=== PATIENT | male | born 1960 | race Caucasian/White ===

== ENCOUNTER → 2017-03-03 | Outpatient (CLI) | payer BC ==
--- NOTE | 2017-03-03 08:32 | US ---
EXAMINATION TYPE: US abdomen complete DATE OF EXAM: 03/03/2017 COMPARISON: US CLINICAL HISTORY: R10.30 Abdominal Pain. RUQ pain, gallbladder surgically absent. EXAM MEASUREMENTS: Liver Length: 18.0 cm Gallbladder Wall: Surgically absent cm CBD: 0.4 cm Spleen: 13.8 cm Right Kidney: 12.8 x 4.9 x 5.9 cm Left Kidney: 13.5 x 6.3 x 6.0 cm Pancreas: not well visualized due to midline bowel gas Liver: Hepatic echotexture is heterogenous and hyperechoic with poor visualization of the portal tria ds. This finding limits evaluation for underlying hepatic masses. Gallbladder: Surgically absent CBD: wnl Spleen: Upper limits of normal size. Right Kidney: No hydronephrosis or masses seen Left Kidney: No hydronephrosis or masses seen Upper IVC: wnl Abd Aorta: wnl The intrahepatic portion of the IVC and proximal abdominal aorta are within normal limits. Common b ile duct is unremarkable. The visualized portions of the pancreas are homogenous. The spleen is unr emarkable. Kidneys are symmetric and free of hydronephrosis. No renal lesions are seen. IMPRESSION: 1. Hyperechoic hepatic echotexture, most commonly related to hepatic steatosis appearing mild in degr ee. 2. Spleen is upper limits of normal size approaching criteria for splenomegaly.
== END | disposition home or self-care (01) ==
LOC: RADUSWWP 07:38
PROVIDERS: ATTEND Family Medicine
DX: K76.0 Fatty (change of) liver, not elsewhere classified (principal); R16.2 Hepatomegaly with splenomegaly, not elsewhere classified; R10.30 Lower abdominal pain, unspecified
CPT/HCPCS: 76700

== ENCOUNTER 2019-02-03 08:46 | Day surgery (SDC) | payer BC ==
[2019-02-01 15:48] VITALS: BMI 28.8
[~2019-02-03 08:46] MED LIST: DEXAMETHASONE SOD PHOSPHATE 10 MG/ML 1 ML VIAL IV ONE; DEXAMETHASONE SOD PHOSPHATE 4 MG/ML 1 ML VIAL IV ONE; FAMOTIDINE 20 MG/2 ML VIAL IV ONE; LACTATED RINGERS 1,000 ML IV SCH; LIDOCAINE 1% 20 ML VIAL (10MG/ML) FOR IV START INTRADERMA PRN; MIDAZOLAM 2 MG/2 ML VIAL IV PRN; ONDANSETRON 4 MG/2 ML VIAL IVP ONE; SCOPOLAMINE 1.5MG/72HR PATCH TRANSDERM ONE
[2019-02-03] MEDS ORDERED: LACTATED RINGERS 1,000 ML IV ONE (09:48)
[2019-02-03] MEDS: OXYMETAZOLINE 0.05% NASL SPRAY 1 SPRAY BOTTLE NASAL ONE ×5 (09:55→10:15)
[2019-02-03] MEDS ORDERED: ROCURONIUM BROMIDE 10 MG/ML 10 ML VIAL IV ONE (11:55)
[2019-02-03] MEDS ORDERED: LIDOCAINE 1% INJ 10MG/ML (20 ML MDV) ONE (11:55)
[2019-02-03] MEDS ORDERED: MIDAZOLAM 2 MG/2 ML VIAL ONE (11:55)
[2019-02-03] MEDS ORDERED: PROPOFOL 10 MG/ML 20 ML VIAL IV ONE (11:55)
[2019-02-03] MEDS ORDERED: GLYCOPYRROLATE 0.2 MG/ML 2 ML VIAL ONE (11:55)
[2019-02-03] MEDS ORDERED: fentaNYL (PF) 50 MCG/ML 2 ML AMP ONE (11:55)
[2019-02-03] MEDS ORDERED: NEOSTIGMINE 1 MG/ML 10 ML VIAL ONE (11:55)
[2019-02-03] MEDS ORDERED: LIDOCAINE 1%-EPI 1:100,000 20 ML VIAL SUBMUCOSAL ONE ×3 (12:13→12:14)
[2019-02-03] MEDS ORDERED: BACITRACIN 500 UNIT/GM OINT 28.4 GM TUBE TOPICAL ONE (12:30)
--- NOTE | 2019-02-03 12:44 | P.OP ---
Date of Procedure: 02/03/19 Preoperative Diagnosis: Deviated nasal septum Inferior turbinate hypertrophy Postoperative Diagnosis: Same Procedure(s) Performed: Septoplasty Outfractured and submucous resection of the inferior turbinates Anesthesia: YAAKOVA Surgeon: Misael Kay Estimated Blood Loss (ml): 5 Pathology: other (Nasal septal bone and cartilage) Condition: stable Disposition: PACU Indications for Procedure: This is a 58-year-old white male whose had difficulties with chronic nasal airway obstruction bilateral not improving with medical management Operative Findings: Nasal septum deviated to the right anterior left posteriorly with a large septal spur posteriorly on the left with inferior turbinate hypertrophy bilaterally Description of Procedure: DESCRIPTION OF PROCEDURE: The patient was brought to the operative suite, placed in the supine position. The patient underwent induction of general anesthesia with oral endotracheal intubation without difficulty. The patient was prepped and draped in the usual aseptic fashion. 1% lidocaine with 1:100,000 epinephrine was infused submucosally on both sides of the nasal septum. While this was taking vasoconstrictive effect, the inferior turbinates were infractured with a Maury elevator. Partial submucous resection of the inferior turbinates was performed with Coblation device ablating a portion of the submucosal soft tissue. The inferior turbinates were then outfractured with a Maury elevator. A left hemitransfixion incision was then made through the mucoperichondrial. Mucoperiosteal flap on the left elevated. Bony cartilaginous junction was disarticulated and mucoperiosteal flap on the right was elevated. Bony nasoseptal deformity were removed with Brina forceps and an inferior cartilaginous strip was removed, leaving a full 1.5 cm caudal strut. Checking intranasally, this corrected the nasal septal deformities and the hemitransfixion incision was closed with running 4-0 chromic suture. The bilateral Lazar airway splints coated in bacitracin ointment were placed in the nasal cavities and sutured transseptally with 4-0 nylon suture. The patient was then suctioned in an orogastric fashion. The patient was allowed to emerge from general anesthesia, having tolerated the procedure well and was extubated in the operating suite, transferred to postoperative recovery area in satisfactory condition.
[2019-02-03 12:54] VITALS: RESP 16; TEMP 97.7
[2019-02-03] MEDS: HYDROmorphone 0.5 MG/0.5 ML SYRINGE IVP PRN ×2 (13:15→13:22)
[2019-02-03] MEDS ORDERED: HYDROcodone/APAP 5-325MG 1 EACH TAB PO ONE (14:12)
[2019-02-03] MEDS ORDERED: hydrALAZINE HCL 20 MG/ML 1 ML VIAL IV ONE ×2 (14:59→16:01)
[2019-02-03 16:20] VITALS: BP 137/83; PULSE 86
== END 2019-02-03 16:31 | disposition home or self-care (01) ==
LOC: OR 08:46
PROVIDERS: ATTEND Otolaryngology
DX: J34.2 Deviated nasal septum (principal); J34.3 Hypertrophy of nasal turbinates; Z90.49 Acquired absence of other specified parts of digestive tract; Z90.89 Acquired absence of other organs; Z82.49 Family history of ischemic heart disease and other diseases of the circulatory system
CPT/HCPCS: 88300; 30520; 30802; J2250; J0360; J1100; J2710; J2405; J2001; J3010; J2704; J1170

== ENCOUNTER → 2020-12-28 | Outpatient (CLI) | payer BC ==
[2020-12-28 14:35] LABS: ALT 30 U/L (4-49); AST 27 U/L (17-59); African American GFR (CKD) >90 (>60 ml/min/1.73 sqM); Anion Gap 9 mmol/L; Blood Urea Nitrogen 18 mg/dL (9-20); C Reactive Protein 0.7 mg/dL (<1.0); Calcium 9.3 mg/dL (8.4-10.2); Carbon Dioxide 25 mmol/L (22-30); Chloride 104 mmol/L (98-107); Creatine Kinase 241 U/L (55-170); Glucose 137 mg/dL (74-99); Non-African American GFR(CKD) >90 (>60 ml/min/1.73 sqM); Sodium 138 mmol/L (137-145); Uric Acid 6.9 mg/dL (3.5-8.5)
[2020-12-28 14:47] LABS: T4, Free (Free Thyroxine) 0.81 ng/dL (0.78-2.19)
[2020-12-28 18:11] LABS: Basophils # (A) 0.04 X 10*3/uL (0.00-0.10); Basophils % (A) 0.6 %; Eosinophils # (A) 0.09 X 10*3/uL (0.04-0.35); Eosinophils % (A) 1.3 %; HCT 43.6 % (39.6-50.0); HGB 14.6 g/dL (13.0-17.0); Lymphocytes # (A) 1.61 X 10*3/uL (0.90-5.00); Lymphocytes % (A) 22.9 %; MCH 29.4 pg (27.0-32.0); MCHC 33.5 g/dL (32.0-37.0); MCV 87.7 fL (80.0-97.0); Mean Platelet Volume 9.2 fL (9.5-12.2); Monocytes # (A) 0.33 X 10*3/uL (0.20-1.00); Monocytes % (A) 4.7 %; Neutrophils % (A) 69.6 %; Platelet Count 319 X 10*3/uL (140-440); RBC 4.97 X 10*6/uL (4.40-5.60); RDW 11.9 % (11.5-14.5); WBC 7.03 X 10*3/uL (4.50-10.00)
[2020-12-28 21:58] LABS: Erythrocyte Sedimentation Rate 19 mm/Hr (0-20)
[2020-12-28 22:42] LABS: Cyclic Citrull Pep IgG Unit 0.7 U/mL; Cyclic Citrullinated Pep IgG NEGATIVE (NEGATIVE)
[2020-12-29 03:52] LABS: Rheumatoid Factor, Qnt <10 IU/mL (0-15)
[2020-12-29 12:23] LABS: HLA B27 NEGATIVE
== END | disposition home or self-care (01) ==
LOC: LABWHC1 13:46
PROVIDERS: ATTEND Orthopaedic Surgery
DX: G56.03 Carpal tunnel syndrome, bilateral upper limbs (principal); M25.631 Stiffness of right wrist, not elsewhere classified; M25.632 Stiffness of left wrist, not elsewhere classified; R20.2 Paresthesia of skin
CPT/HCPCS: 36415; 80048; 82009; 82306; 82550; 83520; 84439; 84443; 84450; 84460; 84550; 85025; 85652; 86038; 86140; 86200; 86431; 86812

== ENCOUNTER 2021-08-31 13:22 | Emergency (ER) | payer BC ==
[2021-08-31 14:12] VITALS: BP 150/95; PULSE 80; RESP 16; TEMP 98.2
--- NOTE | 2021-08-31 15:41 | ED ---
General Adult HPI - General Chief complaint: Abdominal Pain Stated complaint: Abd Pain Time Seen by Provider: 08/31/21 15:30 Source: patient, RN notes reviewed, old records reviewed Mode of arrival: ambulatory Limitations: no limitations - History of Present Illness Initial comments: This is a 61-year-old male who presents emergency Department stating he was at work sitting at his desk when all of a sudden he had some right upper quadrant abdominal pain he states it was severe lasted about 10 minutes and then subsided. Patient states he hasn't had any since. Patient denies any nausea vomiting diarrhea. Patient denies any fever chills. Patient states had a cholecystectomy. Patient denies any back pain. Patient denies any change in bowel habits. Patient denies any chest pain or difficulty breathing shortness of breath. - Related Data Home Medications Medication Instructions Recorded Confirmed No Known Home Medications 02/01/19 02/01/19 Allergies Allergy/AdvReac Type Severity Reaction Status Date / Time No Known Allergies Allergy Verified 08/31/21 14:08 Review of Systems ROS Statement: Those systems with pertinent positive or pertinent negative responses have been documented in the HPI. ROS Other: All systems not noted in ROS Statement are negative. Past Medical History Additional Past Medical History / Comment(s): "mouth breather", History of Any Multi-Drug Resistant Organisms: None Reported Past Surgical History: Appendectomy, Cholecystectomy, Orthopedic Surgery Additional Past Surgical History / Comment(s): knee arthroscopy(not sure which one) Past Anesthesia/Blood Transfusion Reactions: No Reported Reaction Past Psychological History: No Psychological Hx Reported Past Alcohol Use History: Occasional Past Drug Use History: None Reported - Past Family History Mother Family Medical History: No Reported History General Exam - General Exam Comments Initial Comments: GENERAL: Patient is well-developed and well-nourished. Patient is nontoxic and well- hydrated and is in no acute distress. ENT: Neck is soft and supple. No significant lymphadenopathy is noted. Oropharynx is clear. Moist mucous membranes. Neck has full range of motion without eliciting any pain. EYES: The sclera were anicteric and conjunctiva were pink and moist. Extraocular movements were intact and pupils were equal round and reactive to light. Eyelids were unremarkable. PULMONARY: Unlabored respirations. Good breath sounds bilaterally. No audible rales rhonchi or wheezing was noted. CARDIOVASCULAR: There is a regular rate and rhythm without any murmurs gallops or rubs. ABDOMEN: Soft and nontender with normal bowel sounds. SKIN: Skin is clear with no lesions or rashes and otherwise unremarkable. NEUROLOGIC: Patient is alert and oriented x3. Cranial nerves II through XII are grossly intact. Motor and sensory are also intact. Normal speech, volume and content. Symmetrical smile. MUSCULOSKELETAL: Normal extremities with adequate strength and full range of motion. No lower extremity swelling or edema. No calf tenderness. LYMPHATICS: No significant lymphadenopathy is noted PSYCHIATRIC: Normal psychiatric evaluation. Limitations: no limitations Course Vital Signs 08/31/21 14:09 Temperature 98.2 F Pulse Rate 80 Respiratory 16 Rate Blood Pressure 150/95 O2 Sat by Pulse 99 Oximetry Medical Decision Making - Medical Decision Making Patient's KUB shows no acute abnormality. Patient had no more episodes of pain throughout his ED stay - Lab Data Result diagrams: 08/31/21 15:48 08/31/21 15:48 Lab Results 08/31/21 08/31/21 08/31/21 Range/Units 15:48 15:48 15:48 WBC 7.9 (3.8-10.6) k/uL RBC 4.55 (4.30-5.90) m/uL Hgb 14.2 (13.0-17.5) gm/dL Hct 40.0 (39.0-53.0) % MCV 87.9 (80.0-100.0) fL MCH 31.3 (25.0-35.0) pg MCHC 35.6 (31.0-37.0) g/dL RDW 12.6 (11.5-15.5) % Plt Count 252 (150-450) k/uL MPV 6.8 Neutrophils % 70 % Lymphocytes % 19 % Monocytes % 6 % Eosinophils % 2 % Basophils % 2 % Neutrophils # 5.6 (1.3-7.7) k/uL Lymphocytes # 1.5 (1.0-4.8) k/uL Monocytes # 0.5 (0-1.0) k/uL Eosinophils # 0.2 (0-0.7) k/uL Basophils # 0.1 (0-0.2) k/uL Sodium 138 (137-145) mmol/L Potassium 4.4 (3.5-5.1) mmol/L Chloride 106 (98-107) mmol/L Carbon Dioxide 25 (22-30) mmol/L Anion Gap 7 mmol/L BUN 15 (9-20) mg/dL Creatinine 0.93 (0.66-1.25) mg/dL Est GFR (CKD-EPI)AfAm >90 (>60 ml/min/1.73 sqM) Est GFR (CKD-EPI)NonAf 89 (>60 ml/min/1.73 sqM) Glucose 103 H (74-99) mg/dL Calcium 8.9 (8.4-10.2) mg/dL Total Bilirubin 0.9 (0.2-1.3) mg/dL AST 56 (17-59) U/L ALT 54 H (4-49) U/L Alkaline Phosphatase 57 (38-126) U/L Total Protein 7.2 (6.3-8.2) g/dL Albumin 4.4 (3.5-5.0) g/dL Amylase 51 (30-110) U/L Lipase 78 (23-300) U/L Urine Color Light Yellow Urine Appearance Clear (Clear) Urine pH 5.5 (5.0-8.0) Ur Specific [place] 1.006 (1.001-1.035) Urine Protein Negative (Negative) Urine Glucose (UA) Negative (Negative) Urine Ketones Negative (Negative) Urine Blood Negative (Negative) Urine Nitrite Negative (Negative) Urine Bilirubin Negative (Negative) Urine Urobilinogen <2.0 (<2.0) mg/dL Ur Leukocyte Esterase Negative (Negative) Disposition Clinical Impression: Abdominal pain Disposition: HOME SELF-CARE Instructions (If sedation given, give patient instructions): Abdominal Pain (ED) Is patient prescribed a controlled substance at d/c from ED?: No Referrals: Conor Ferguson MD [Primary Care Provider] - 1-2 days Time of Disposition: 16:28
--- NOTE | 2021-08-31 15:52 | XR ---
EXAMINATION TYPE: XR KUB DATE OF EXAM: 08/31/2021 3:47 PM CLINICAL HISTORY: Right upper quadrant pain. History of cholecystectomy. TECHNIQUE: Two Upright KUB images of the abdomen are obtained. COMPARISON: CT abdomen and pelvis September 21, 2012. FINDINGS: Scattered gas is seen in non-distended small and large bowel loops. Cholecystectomy clips a re now present. No visceromegaly or abnormal calcifications. No free air. Lung bases remain clear. Os seous structures are intact. IMPRESSION: Overall nonobstructive bowel gas pattern.
[2021-08-31 16:06] LABS: Basophils # (A) 0.1 k/uL (0-0.2); Basophils % (A) 2 %; Eosinophils # (A) 0.2 k/uL (0-0.7); Eosinophils % (A) 2 %; HGB 14.2 gm/dL (13.0-17.5); Lymphocytes # (A) 1.5 k/uL (1.0-4.8); Lymphocytes % (A) 19 %; MCH 31.3 pg (25.0-35.0); MCHC 35.6 g/dL (31.0-37.0); MCV 87.9 fL (80.0-100.0); Mean Platelet Volume 6.8; Monocytes # (A) 0.5 k/uL (0-1.0); Monocytes % (A) 6 %; Neutrophils # (A) 5.6 k/uL (1.3-7.7); Neutrophils % (A) 70 %; Platelet Count 252 k/uL (150-450); RBC 4.55 m/uL (4.30-5.90); RDW 12.6 % (11.5-15.5); WBC 7.9 k/uL (3.8-10.6)
[2021-08-31 16:14] LABS: ALT 54 U/L (4-49); AST 56 U/L (17-59); African American GFR (CKD) >90 (>60 ml/min/1.73 sqM); Albumin 4.4 g/dL (3.5-5.0); Alkaline Phosphatase 57 U/L (38-126); Amylase 51 U/L (30-110); Anion Gap 7 mmol/L; Blood Urea Nitrogen 15 mg/dL (9-20); Calcium 8.9 mg/dL (8.4-10.2); Carbon Dioxide 25 mmol/L (22-30); Chloride 106 mmol/L (98-107); Glucose 103 mg/dL (74-99); Lipase 78 U/L (23-300); Non-African American GFR(CKD) 89 (>60 ml/min/1.73 sqM); Potassium 4.4 mmol/L (3.5-5.1); Sodium 138 mmol/L (137-145); Total Bilirubin 0.9 mg/dL (0.2-1.3); Total Protein 7.2 g/dL (6.3-8.2)
[2021-08-31 16:19] LABS: Appearance,Urine Clear (Clear); Bilirubin,Urine Negative (Negative); Blood,Urine Negative (Negative); Color,Urine Light Yellow; Glucose,Urine (UA) Negative (Negative); Ketones,Urine Negative (Negative); Leukocyte Esterase,Urine Negative (Negative); Nitrite,Urine Negative (Negative); PH, Urine 5.5 (5.0-8.0); Protein,Urine Negative (Negative); Specific Gravity,Urine 1.006 (1.001-1.035); Urobilinogen,Urine <2.0 mg/dL (<2.0)
== END 2021-08-31 16:47 | disposition home or self-care (01) ==
LOC: EC 13:22
DX: R10.11 Right upper quadrant pain (principal)
CPT/HCPCS: 36415; 74018; 80053; 81003; 82150; 83690; 85025; 99284

== ENCOUNTER → 2022-07-09 | Outpatient (CLI) | payer BC ==
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
== END ==
LOC: SLEEP 13:11
PROVIDERS: ATTEND Internal Medicine Critical Care Medicine
DX: G47.33 Obstructive sleep apnea (adult) (pediatric) (principal); N40.0 Benign prostatic hyperplasia without lower urinary tract symptoms; E78.5 Hyperlipidemia, unspecified; F41.9 Anxiety disorder, unspecified; Z98.890 Other specified postprocedural states
CPT/HCPCS: 99211

== ENCOUNTER 2022-08-01 19:28 | Outpatient (CLI) | payer BC ==
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
== END 2022-08-02 23:59 ==
LOC: 3 N SLEEP 19:28 → EDSTATUS 19:30 → 3 N SLEEP 08-02 06:00
PROVIDERS: ATTEND Internal Medicine Critical Care Medicine
DX: G47.33 Obstructive sleep apnea (adult) (pediatric) (principal); N40.0 Benign prostatic hyperplasia without lower urinary tract symptoms; F41.9 Anxiety disorder, unspecified; E78.5 Hyperlipidemia, unspecified
CPT/HCPCS: 95810

== ENCOUNTER → 2022-12-03 | Outpatient (CLI) | payer BC ==
--- NOTE | 2022-12-03 16:41 | PN ---
PROGRESS NOTE SUBJECTIVE: A 62-year-old male patient diagnosed having obstructive sleep apnea with an AHI of 15 and the patient was given APAP unit. The patient is coming in for a compliancy check. He reports improvement in sleep quality and daytime alertness and the patient is more awake and alert during the day. has noted that the patient is not snoring anymore and this is another positive effect of CPAP therapy. The patient is committed to long- term CPAP therapy as the patient has significant clinical response. Howard score is currently at 8. Based on compliance data collected between 11/03/2022 and 12/02/2022, the patient has achieved 87% compliancy, the patient has been achieving more than 4 hours of usage 80% of the time, the patient has been averaging around 6 hours and 56 minutes of CPAP use per night and his AHI is down to 1.9. Average pressure delivered by the machine is around 10.1. Leaks are minimal in the order of 16 L/minute and the patient is utilizing an AirFit F20 medium-sized full-face mask, the patient also has F30 option medium sized. REVIEW OF SYSTEMS: A 14-point review of systems was done. Positive findings are as mentioned in history of present illness. PHYSICAL EXAMINATION: VITAL SIGNS: BP is 136/71, pulse 87, respirations 16, Howard score is at 8, and temperature 97.6 with a pulse ox of 96% on room-air oxygen. GENERAL APPEARANCE: Calm, comfortable. HEAD: Atraumatic normocephalic. NECK: Supple. There is no JVD. No goiter or neck masses. LUNGS: Clear to auscultation. HEART: Sounds regular rate and rhythm. Normal S1, S2. No S3, S4. No murmurs. ABDOMEN: Soft, nontender. No organomegaly. EXTREMITIES: No edema. No cyanosis or clubbing. NEUROLOGIC: The patient is awake and alert. There is no focal neurological deficit. IMPRESSION: 1. Symptomatic obstructive sleep apnea with an AHI of 15, consistent with mild to moderate disease, undergoing successful APAP therapy. 2. Chronic hypersomnia, improved with CPAP therapy. Howard score is at 8. PLAN: 1. Proceed with CPAP therapy at the same pressure setting. Continue utilizing an alternating between AirFit F20 and AirFit F30 fullface mask medium size. 2. Adequate sleep hygiene measures. 3. Encourage weight loss. 4. See me back in a year's time in followup. MMODL / IJN: [id number] /
== END ==
LOC: 3 N SLEEP 14:33
PROVIDERS: ATTEND Internal Medicine Critical Care Medicine
DX: G47.33 Obstructive sleep apnea (adult) (pediatric) (principal); G47.10 Hypersomnia, unspecified
CPT/HCPCS: 99212

== ENCOUNTER → 2023-03-31 | Outpatient (CLI) | payer BC ==
--- NOTE | 2023-03-31 13:32 | CA ---
Stress Echo Report Jose Boland Age: 63 Gender: M : 1960 Exam Date: 03/31/2023 09:37 Exam Location: [place] Stress Ht (in): 68 Wt (lb): 195 Ordering Physician: Conor Ferguson MD Referring Physician: Conor Ferguson,, Register Repairer: BUSTER Technologist Procedure CPT: Indication: R07.89 other chest pain ICD-9 Codes: Rhythm: Patient History: Cardiac Medications: Medications in past 24 hours: Contrast: N/A Stress Results Protocol: Castillo Total dose(mL): Exercise Duration (min:sec): 9:[address] Depression (mm): 0 Angina Score: 0 Gonzalez Score: 9.72 METS: 10.9 Resting HR: 90 Resting BP: 120 / 66 Peak HR: 167 Peak BP: 183 / 74 Max Predicted HR: 158 106 % Max Predicted HR Target HR: 134 Double Product: [id number] Stress Summary: BP Response: Normal Reason for Termination: Reached target heart rate or work-load Cardiac Symptoms: no symptoms ECG Analysis Resting ECG: Normal sinus rhythm, normal ECG Stress ECG: No abnormal ST/T wave changes with exercise Arrhythmia: None Echo Analysis Resting Echo: Normal resting echocardiogram. Peak Echo Analysis: Normal treadmill stress echocardiogram. MEASUREMENTS (Male/Female) Normal Values CONCLUSIONS Patient falls into low-risk group (DTS >= +5). This associates the patient with an annual CV mortality <= 0.5%. 1. Good exercise tolerance 2. Normal electrocardiographic response to exercise 3. Normal stress echocardiogram with no evidence of stress- induced ischemia Dr. Eduardo Rob MD (Electronically Signed) Final Date: 31 March 2023 13:31
== END | disposition home or self-care (01) ==
LOC: RADNMMAIN 08:58
PROVIDERS: ATTEND Family Medicine
DX: R07.89 Other chest pain (principal)
CPT/HCPCS: 93351

== ENCOUNTER → 2024-03-03 | Outpatient (CLI) | payer BC ==
--- NOTE | 2024-03-03 16:00 | CT ---
EXAMINATION TYPE: CT brain wo con DATE OF EXAM: 03/03/2024 COMPARISON: None CLINICAL INDICATION: Male, 64 years old with history of R51.9 HEADACHE, SUDDEN ONSET; PHH, Pt states he is having issues with loss of balance at random times, unsure how long its been going on. CT DLP: 1064.3 mGycm Automated exposure control for dose reduction was used. Findings: The ventricles, basal cisterns and sulci over the convexities are within normal limits and there is n o mass effect or shift of midline structures. No abnormal density is seen throughout the brain parenchyma and there is no acute intra or extra-axia l hemorrhage. The posterior fossa including the brainstem, fourth ventricle and cerebellar pontine angles appear no rmal. Intraorbital contents appear normal and symmetric. Visualized paranasal sinuses and mastoid air cells are well aerated. The calvarium is intact. IMPRESSION: No significant abnormality seen. There is no acute bleed or mass effect. [facility], Workstation: KAROLYN 03/03/2024 3:57 PM
== END | disposition home or self-care (01) ==
LOC: RADCTMAIN 15:16
PROVIDERS: ATTEND Family Medicine
DX: R51.9 Headache, unspecified (principal)
CPT/HCPCS: 70450